=== PATIENT | male | born 1990 | race Caucasian/White ===

== ENCOUNTER 2016-09-06 22:36 | Emergency (ER) | payer OTHER ==
--- NOTE | 2016-09-06 22:56 | ED NURSING NOTES ---
Clinical Report - Nurses [facility] [place] [address] 09/06/2016 22:38 [id number] TRI[facility] Triage time 22:49 Sep 06 2016. Acuity: LEVEL 3. Chief Complaint: VOMITING. Alert. No acute distress. JUDSON COMA SCORE: Judson Coma Scale: 15- eyes open spontaneously (4); best verbal response- oriented x 4 (5); best motor response- obeys commands (6). --22:54 Patricia Amado R.N. 22:49 09/06/16. BP: 146/99. HR: 94. RR: 20. O2 saturation: 94%. Temp: 97.9 F. Pain level now: 0/10. --22:54 Patricia Amado R.N. Weight: 127 kg stated. Height/Length: 70 inches Per Patient. BMI: 40.2. --22:50 Patricia Amado R.N. Medications None. --22:53 Patricia Amado R.N. Allergies No Known Drug Allergy. --22:53 Patricia Amado R.N. History Arrived by private vehicle. Historian: patient. Accompanied by friend. This started today. No nausea, vomiting, diarrhea or abdominal pain. Treatment STERILE PREPARATION TECHNICIAN: None. --22:54 Patricia Amado R.N. SOCIAL HX: Current every day heavy tobacco smoker (cigarette)- less than 1 pack per day. No alcohol use or drug use. No recent travel. No infectious disease exposure. No known contact with a sick individual. SELF HARM ASSESSMENT: A self harm assessment was performed. The patient was asked "Do you have thoughts of harming or killing yourself?". FALL RISK ASSESSMENT: Fall risk assessment completed. No fall risk identified. NUTRITIONAL RISK ASSESSMENT: The nutritional risk assessment revealed no deficiencies. FUNCTIONAL ASSESSMENT: Functional assessment: no impairments noted. LEARNING NEEDS ASSESSMENT: The learning needs assessment revealed no barriers. ABUSE ASSESSMENT: Abuse assessment: The patient was asked "Do you feel safe in your home?". SKIN INTEGRITY ASSESSMENT: Skin integrity risk assessment completed. No skin integrity risk identified. --22:57 Patricia Amado R.N. PROBLEMS: Flank Pain. Immunizations. --22:53 Patricia Amado R.N. Interventions ID band on patient. To room. --22:54 Patricia Amado R.N. PHYSICAL ASSESSMENT GENERAL / NEURO / PSYCH: Alert. Oriented X 4. Appears in no acute distress. RESPIRATORY: Respirations not labored. CVS: Capillary refill less than 2 seconds. GI / : Abdomen soft and nontender. SKIN: Skin is warm and dry. --22:57 Patricia Amado R.N. NURSING PROGRESS NOTES Patient identifiers checked. Call light placed in reach. Side rails up. Bed placed in lowest position. Brakes of bed on. --22:57 Patricia Amado R.N. DISPOSITION / DISCHARGE Departure time: 23:06 Sep 06 2016. Condition at departure: unchanged. No learning barriers present. Discharge instructions provided and reviewed with the patient. Reviewed referral to a primary care physician. Work note given. Patient verbalized understanding. Written instructions provided in Beninese. The patient was discharged home and accompanied by cane loader. He left the Emergency Department ambulatory and via private vehicle. Patient driving. FALL RISK ASSESSMENT: Fall risk assessment completed. No fall risk identified. --23:06 Patricia Amado R.N. Locked/Released at 09/07/2016 9:18 by Yareli Almeida R.N.
--- NOTE | 2016-09-06 22:56 | ED CLINICAL REPORT ---
Clinical Report - Physicians/Mid Levels Located Within [facility] [address] [place] [address] 09/06/2016 22:38 Patient: CLARISSE PERDOMO Time Seen: 2250pr 2016. Arrived- By private vehicle. HISTORY OF PRESENT ILLNESS Chief Complaint: VOMITING. This started today and is now gone. The patient has had vomiting. No black stools, bloody stools or abdominal pain. (This morning patient had an episode of emesis. He reports he did not attend work. Patient is here with his girlfriend for a work note. He reports over the last 4 hours, he was driving around with his mother, and was unable to come to the emergency department. He has no active complaints. He does not have a primary care provider.). REVIEW OF SYSTEMS No cough. All systems otherwise negative, except as recorded above. PAST HISTORY Problems: Flank Pain. Immunizations. Medications: None. Allergies: No Known Drug Allergy. SOCIAL HISTORY Current every day smoker. No alcohol use or drug use. ADDITIONAL NOTES The nursing notes have been reviewed. PHYSICAL EXAM Vital Signs: 09/06/2016 22:49 BP: 146/99. HR: 94. RR: 20. O2 saturation: 94%. Temp: 97.9 F. Pain level now: 0/10. Appearance: Alert. Eyes: Eyes normal inspection. ENT: Ears normal. Nose normal. Neck: Normal inspection. CVS: Normal heart rate and rhythm. Heart sounds normal. Respiratory: No respiratory distress. Breath sounds normal. No accessory muscle use or decreased air movement. Abdomen: Soft and nontender. No abdominal tenderness. Back: Normal inspection. No CVA tenderness. Skin: Skin warm. Neuro: Oriented X 3. No motor deficit. No sensory deficit. PROGRESS AND PROCEDURES Course of Care: I informed the patient is not emergency. As he has no active complaints. I'm rather unsure if he had emesis this morning, in addition hasn't lower since this morning. This is concerning behavior, as this is done via an emergency condition to be attending to the department. Discussed this in detail with patient has also has girlfriend, who seemed to have made an understanding of my concerns. Inquired if patient would prescribe himself work note for this, as a largely unsure what he has been doing today all day. He has been eating, and appears in no distress. Ambulating well to the room speaking in full sentences abdomen is soft nontender, rather ticklish on the right aspect. Euvolemic appearing, well-dressed and groomed for his age. He reports history of hypertension, that has not been treated. He is urged to follow-up with her primary care provider, and. Patient is stable. Patient/family counseled. Disposition: Discharged. Condition: good. CLINICAL IMPRESSION Vomiting. Normal exam upon presentation and while in the ED. Hypertension. Obese. INSTRUCTIONS Do not work today. Drink plenty of fluids. (Address: [address] [place] [address] [place] [address] Please establish care with primary care dr). (Electronically signed by Sri Valerio P.A.-C 09/06/2016 23:29)
--- NOTE | 2016-09-06 22:56 | ED NURSING NOTES ---
Clinical Report - Nurses [facility] [place] [address] 09/06/2016 22:38 [id number] Triage time 22:49 Sep 06 2016. Acuity: LEVEL 3. Chief Complaint: VOMITING. Alert. No acute distress. JUDSON COMA SCORE: Judson Coma Scale: 15- eyes open spontaneously (4); best verbal response- oriented x 4 (5); best motor response- obeys commands (6). --22:54 Patricia Amado R.N. 22:49 09/06/16. BP: 146/99. HR: 94. RR: 20. O2 saturation: 94%. Temp: 97.9 F. Pain level now: 0/10. --22:54 Patricia Amado R.N. Weight: 127 kg stated. Height/Length: 70 inches Per Patient. BMI: 40.2. --22:50 Patricia Amado R.N. Medications None. --22:53 Patricia Amado R.N. Allergies No Known Drug Allergy. --22:53 Patricia Amado R.N. History Arrived by private vehicle. Historian: patient. Accompanied by friend. This started today. No nausea, vomiting, diarrhea or abdominal pain. Treatment STOREROOM KEEPER: None. --22:54 Patricia Amado R.N. SOCIAL HX: Current every day heavy tobacco smoker (cigarette)- less than 1 pack per day. No alcohol use or drug use. No recent travel. No infectious disease exposure. No known contact with a sick individual. SELF HARM ASSESSMENT: A self harm assessment was performed. The patient was asked "Do you have thoughts of harming or killing yourself?". FALL RISK ASSESSMENT: Fall risk assessment completed. No fall risk identified. NUTRITIONAL RISK ASSESSMENT: The nutritional risk assessment revealed no deficiencies. FUNCTIONAL ASSESSMENT: Functional assessment: no impairments noted. LEARNING NEEDS ASSESSMENT: The learning needs assessment revealed no barriers. ABUSE ASSESSMENT: Abuse assessment: The patient was asked "Do you feel safe in your home?". SKIN INTEGRITY ASSESSMENT: Skin integrity risk assessment completed. No skin integrity risk identified. --22:57 Patricia Amado R.N. PROBLEMS: Flank Pain. Immunizations. --22:53 Patricia Amado R.N. Interventions ID band on patient. To room. --22:54 Patricia Amado R.N. PHYSICAL ASSESSMENT GENERAL / NEURO / PSYCH: Alert. Oriented X 4. Appears in no acute distress. RESPIRATORY: Respirations not labored. CVS: Capillary refill less than 2 seconds. GI / : Abdomen soft and nontender. SKIN: Skin is warm and dry. --22:57 Patricia Amado R.N. NURSING PROGRESS NOTES Patient identifiers checked. Call light placed in reach. Side rails up. Bed placed in lowest position. Brakes of bed on. --22:57 Patricia Amado R.N. DISPOSITION / DISCHARGE Departure time: 23:06 Sep 06 2016. Condition at departure: unchanged. No learning barriers present. Discharge instructions provided and reviewed with the patient. Reviewed referral to a primary care physician. Work note given. Patient verbalized understanding. Written instructions provided in Ghanaian. The patient was discharged home and accompanied by dairy cattle farm manager. He left the Emergency Department ambulatory and via private vehicle. Patient driving. FALL RISK ASSESSMENT: Fall risk assessment completed. No fall risk identified. --23:06 Patricia Amado R.N. Locked/Released at 09/07/2016 9:18 by Yareli Almeida R.N.
--- NOTE | 2016-09-06 22:56 | ED CLINICAL REPORT ---
Clinical Report - Physicians/Mid Levels [facility] [address] [place] [address] 09/06/2016 22:38 Patient: CLARISSE PERDOMO Time Seen: 2250pr 2016. Arrived- By private vehicle. HISTORY OF PRESENT ILLNESS Chief Complaint: VOMITING. This started today and is now gone. The patient has had vomiting. No black stools, bloody stools or abdominal pain. (This morning patient had an episode of emesis. He reports he did not attend work. Patient is here with his girlfriend for a work note. He reports over the last 4 hours, he was driving around with his mother, and was unable to come to the emergency department. He has no active complaints. He does not have a primary care provider.). REVIEW OF SYSTEMS No cough. All systems otherwise negative, except as recorded above. PAST HISTORY Problems: Flank Pain. Immunizations. Medications: None. Allergies: No Known Drug Allergy. SOCIAL HISTORY Current every day smoker. No alcohol use or drug use. ADDITIONAL NOTES The nursing notes have been reviewed. PHYSICAL EXAM Vital Signs: 09/06/2016 22:49 BP: 146/99. HR: 94. RR: 20. O2 saturation: 94%. Temp: 97.9 F. Pain level now: 0/10. Appearance: Alert. Eyes: Eyes normal inspection. ENT: Ears normal. Nose normal. Neck: Normal inspection. CVS: Normal heart rate and rhythm. Heart sounds normal. Respiratory: No respiratory distress. Breath sounds normal. No accessory muscle use or decreased air movement. Abdomen: Soft and nontender. No abdominal tenderness. Back: Normal inspection. No CVA tenderness. Skin: Skin warm. Neuro: Oriented X 3. No motor deficit. No sensory deficit. PROGRESS AND PROCEDURES Course of Care: I informed the patient is not emergency. As he has no active complaints. I'm rather unsure if he had emesis this morning, in addition hasn't lower since this morning. This is concerning behavior, as this is done via an emergency condition to be attending to the department. Discussed this in detail with patient has also has girlfriend, who seemed to have made an understanding of my concerns. Inquired if patient would prescribe himself work note for this, as a largely unsure what he has been doing today all day. He has been eating, and appears in no distress. Ambulating well to the room speaking in full sentences abdomen is soft nontender, rather ticklish on the right aspect. Euvolemic appearing, well-dressed and groomed for his age. He reports history of hypertension, that has not been treated. He is urged to follow-up with her primary care provider, and. Patient is stable. Patient/family counseled. Disposition: Discharged. Condition: good. CLINICAL IMPRESSION Vomiting. Normal exam upon presentation and while in the ED. Hypertension. Obese. INSTRUCTIONS Do not work today. Drink plenty of fluids. (Address: [address] [place] [address] [place] [address] Please establish care with primary care dr). (Electronically signed by Sri Valerio P.A.-C 09/06/2016 23:29)
--- NOTE | 2016-09-07 09:20 | ED DISCHARGE INSTRUCTIONS ---
Patient: CLARISSE PERDOMO General Instructions [facility] VisitID: [id number] [place] [address] 26y, M Registration Date/Time: 09/06/2016 Vomiting. Normal exam upon presentation and while in the ED. Hypertension. Obese. INSTRUCTIONS Do not work today. Drink plenty of fluids. (Address: [address] [place] [address] Please establish care with primary care dr). ADDITIONAL INFORMATION Vomiting [6Yr-Adult] Vomiting is a common symptom that may be due to different causes. These include gastroenteritis ("stomach flu"), food poisoning and gastritis. There are other more serious causes of vomiting which may be hard to diagnose early in the illness. Therefore, it is important to watch for the warning signs listed below. The main danger from repeated vomiting is dehydration. This is due to excess loss of water and minerals from the body. When this occurs, body fluids must be replaced. Home Care: If symptoms are severe, rest at home for the next 24 hours. You may use acetaminophen (Tylenol) or ibuprofen (Motrin, Advil) to control fever, unless another medicine was prescribed. [NOTE : If you have chronic liver or kidney disease or ever had a stomach ulcer or GI bleeding, talk with your doctor before using these medicines.] (Aspirin should never be used in anyone under 18 years of age who is ill with a fever. It may cause severe liver damage.) Avoid tobacco and alcohol use, which may worsen your symptoms. If medicines for vomiting were prescribed, take as directed. Once vomiting stops, then follow these guidelines: During The First 12-24 Hours follow the diet below: FRUIT JUICES: Apple, grape juice, clear fruit drinks, and electrolyte replacement drinks. BEVERAGES: Soft drinks without caffeine; mineral water (plain or flavored), decaffeinated tea and coffee. SOUPS: Clear broth, consomm and bouillon DESSERTS: Plain gelatin, popsicles and fruit juice bars. As you feel better, you may add 6-8 ounces of yogurt per day. During The Next 24 Hours you may add the following to the above: Hot cereal, plain toast, bread, rolls, crackers Plain noodles, rice, mashed potatoes, chicken noodle or rice soup Unsweetened canned fruit (avoid pineapple), bananas Limit caffeine and chocolate. No spices or seasonings except salt. During The Next 24 Hours Gradually resume a normal diet, as you feel better and your symptoms lessen. Follow Up with your doctor as advised if you are not improving over the next 2-3 days. Get Prompt Medical Attention if any of the following occur: Constant right-sided lower abdominal pain or increasing general abdominal pain Continued vomiting (unable to keep liquids down) for 24 hours Frequent diarrhea (more than 5 times a day); blood (red or black color) or mucus in diarrhea Reduced urine output or extreme thirst Weakness, dizziness or fainting Unusually drowsy or confused Fever of 100.4F (38C) oral or higher, not better with fever medication Yellow color of the eyes or skin Normal Exam [6Yr - Adult] Based on your or your child's exam today, there are no signs of illness or injury. Be assured that the symptoms that worried you are normal. They do not suggest any illness requiring testing or treatment at this time. Home Care: You (or your child) can return to normal activities and diet. If you or your child have new or unusual symptoms not already discussed today, contact the doctor. Follow Up with the doctor for the next routine appointment. For more information: For childrens health information: www.kidshealth.org For adult health information: www.mayoclinic.org You have been given the following additional information: Vomiting (6Y-Adult) Normal Exam, (Child) (Adult) Do not work today. (Electronically signed by Sri Valerio P.A.-C 09/06/2016 23:29)
--- NOTE | 2016-09-07 09:20 | ED MAR SUMMARY ---
..... Medication Administration Record [facility] [address] [place], [place] [id number] Patient: CLARISSE PERDOMO Visit ID: [id number] 26y, M Weight: 127.0 kg Height/Length: 70 in BMI: 40.2 ALLERGIES: No Known Drug Allergy
--- NOTE | 2016-09-07 09:20 | ED MED RECONCILIATION SUMMARY ---
Patient: CLARISSE PERDOMO Medication Reconciliation Report [facility] VisitID: [id number] [address] [place] [place] [address] 26y, M Registration Date/Time: 09/06/2016 Weight: 127.0 kg Height/Length: 70 in. BMI: 40.2 ALLERGIES: No Known Drug Allergy The patient's Home Medications are listed below: NONE. The source(s) of the original Home Medication information: Not obtained. The following Medications were given to the patient in the Emergency Department: None. The following Medications were prescribed to the patient: None.
--- NOTE | 2016-09-07 09:20 | ED DISCHARGE INSTRUCTIONS ---
Patient: CLARISSE PERDOMO General Instructions [facility] VisitID: [id number] [place] [address] 26y, M Registration Date/Time: 09/06/2016 Vomiting. Normal exam upon presentation and while in the ED. Hypertension. Obese. INSTRUCTIONS Do not work today. Drink plenty of fluids. (Address: [address] [place] [address] Please establish care with primary care dr). ADDITIONAL INFORMATION Vomiting [6Yr-Adult] Vomiting is a common symptom that may be due to different causes. These include gastroenteritis ("stomach flu"), food poisoning and gastritis. There are other more serious causes of vomiting which may be hard to diagnose early in the illness. Therefore, it is important to watch for the warning signs listed below. The main danger from repeated vomiting is dehydration. This is due to excess loss of water and minerals from the body. When this occurs, body fluids must be replaced. Home Care: If symptoms are severe, rest at home for the next 24 hours. You may use acetaminophen (Tylenol) or ibuprofen (Motrin, Advil) to control fever, unless another medicine was prescribed. [NOTE : If you have chronic liver or kidney disease or ever had a stomach ulcer or GI bleeding, talk with your doctor before using these medicines.] (Aspirin should never be used in anyone under 18 years of age who is ill with a fever. It may cause severe liver damage.) Avoid tobacco and alcohol use, which may worsen your symptoms. If medicines for vomiting were prescribed, take as directed. Once vomiting stops, then follow these guidelines: During The First 12-24 Hours follow the diet below: FRUIT JUICES: Apple, grape juice, clear fruit drinks, and electrolyte replacement drinks. BEVERAGES: Soft drinks without caffeine; mineral water (plain or flavored), decaffeinated tea and coffee. SOUPS: Clear broth, consomm and bouillon DESSERTS: Plain gelatin, popsicles and fruit juice bars. As you feel better, you may add 6-8 ounces of yogurt per day. During The Next 24 Hours you may add the following to the above: Hot cereal, plain toast, bread, rolls, crackers Plain noodles, rice, mashed potatoes, chicken noodle or rice soup Unsweetened canned fruit (avoid pineapple), bananas Limit caffeine and chocolate. No spices or seasonings except salt. During The Next 24 Hours Gradually resume a normal diet, as you feel better and your symptoms lessen. Follow Up with your doctor as advised if you are not improving over the next 2-3 days. Get Prompt Medical Attention if any of the following occur: Constant right-sided lower abdominal pain or increasing general abdominal pain Continued vomiting (unable to keep liquids down) for 24 hours Frequent diarrhea (more than 5 times a day); blood (red or black color) or mucus in diarrhea Reduced urine output or extreme thirst Weakness, dizziness or fainting Unusually drowsy or confused Fever of 100.4F (38C) oral or higher, not better with fever medication Yellow color of the eyes or skin Normal Exam [6Yr - Adult] Based on your or your child's exam today, there are no signs of illness or injury. Be assured that the symptoms that worried you are normal. They do not suggest any illness requiring testing or treatment at this time. Home Care: You (or your child) can return to normal activities and diet. If you or your child have new or unusual symptoms not already discussed today, contact the doctor. Follow Up with the doctor for the next routine appointment. For more information: For childrens health information: www.kidshealth.org For adult health information: www.mayoclinic.org You have been given the following additional information: Vomiting (6Y-Adult) Normal Exam, (Child) (Adult) Do not work today. (Electronically signed by Sri Valerio P.A.-C 09/06/2016 23:29)
--- NOTE | 2016-09-07 09:20 | ED MED RECONCILIATION SUMMARY ---
Patient: CLARISSE PERDOMO Medication Reconciliation Report [facility] VisitID: [id number] [address] [place] [place] [address] 26y, M Registration Date/Time: 09/06/2016 Weight: 127.0 kg Height/Length: 70 in. BMI: 40.2 ALLERGIES: No Known Drug Allergy The patient's Home Medications are listed below: NONE. The source(s) of the original Home Medication information: Not obtained. The following Medications were given to the patient in the Emergency Department: None. The following Medications were prescribed to the patient: None.
--- NOTE | 2016-09-07 09:20 | ED MAR SUMMARY ---
..... Medication Administration Record [facility] [address] [place], [place] [id number] Patient: CLARISSE PERDOMO Visit ID: [id number] 26y, M Weight: 127.0 kg Height/Length: 70 in BMI: 40.2 ALLERGIES: No Known Drug Allergy
== END 2016-09-06 23:02 | disposition home or self-care (01) ==
LOC: ED SRH 22:36
DX: R11.10 Vomiting, unspecified (principal); I10 Essential (primary) hypertension; E66.9 Obesity, unspecified; F17.210 Nicotine dependence, cigarettes, uncomplicated